=== PATIENT | female | born 1960 | race Caucasian/White ===

== ENCOUNTER 2023-08-01 16:17 | Emergency (ER) | payer OTHER, SELFPAY ==
--- NOTE | ~2023-08-01 | CT_ITS ---
EXAMINATION: CT abdomen pelvis w con DATE: 08/01/2023 19:19 INDICATION: Epigastric and left upper quadrant abdominal pain. Nausea. Diarrhea. TECHNIQUE: Computed tomography (CT) of the abdomen and pelvis was performed with 100 mL Omnipaque 350 intravenous contrast. Automated exposure control and iterative reconstruction technique were employe d. The dose-length product was 1287.10 mGy-cm. COMPARISON: None. FINDINGS: The visualized portions of the lung bases demonstrate mild atelectasis. No pleural effusion . The heart size is normal. No pericardial effusion. There is wall thickening of the distal esophagus , likely esophagitis. The liver, gallbladder, spleen, pancreas, adrenal glands, and kidneys are beth l. There are no dilated loops of bowel. The appendix is normal. There is calcified atherosclerosis of the aorta and many of the other arteries. There are no pathologically enlarged lymph nodes. There is no free intraperitoneal fluid. There is mild thoracic and lumbar spondylosis. IMPRESSION: 1. Wall thickening of the distal esophagus, likely esophagitis. Reviewed, dictated and finalized at location E. HALMOLOGIST
[2023-08-01 16:41] VITALS: BP 150/108; PULSE 71; RESP 16; TEMP 36.6; O2SAT 96
[2023-08-01 18:16] LABS: Basophils Absolute Auto 0.1 K/mm3 (0.0-0.1); Basophils Percent Auto 0.8 % (0.2-1.2); Eosinophils Absolute Auto 0.1 K/mm3 (0-0.3); Eosinophils Percent Auto 1.5 % (0-4.4); Hematocrit 43.3 % (37.0-47.0); Hemoglobin 14.1 g/dL (12.0-15.0); Immature Granulocyte Absolute 0.01 K/mm3 (0.00-0.031); Immature Granulocyte Percent A 0.1 % (0-0.5); Lymphocytes Percent Auto 41.1 % (18.3-44.2); Mean Corpuscular HGB Conc 32.6 g/dl (32-36); Mean Corpuscular Hemoglobin 29.4 pg (26-34); Mean Corpuscular Volume 90.4 fl (80-100); Monocytes Absolute Auto 0.8 K/mm3 (0.1-0.6); Monocytes Percent Auto 8.1 % (2.6-8.5); Neutrophils Absolute Auto 4.6 K/mm3 (1.3-6.7); Neutrophils Percent Auto 48.4 % (45.5-73.1); Platelet Count Result 227 k/mm3 (150-375); Red Blood Count 4.79 M/mm3 (4.2-5.4); Red Cell Distribution Width 13.3 % (11.5-14.5); White Blood Count 9.5 K/mm3 (4.5-10.0)
[2023-08-01 18:31] LABS: Alanine Aminotransferase 17 U/L (6-35); Albumin Level 4.3 g/dL (3.5-5.1); Alkaline Phosphatase 75 U/L (38-126); Anion Gap 8 mmol/L (8-16); Aspartate Amino Transferase 20 U/L (14-36); Bilirubin,Total 0.5 mg/dL (0.2-1.3); Blood Urea Nitrogen 17 mg/dL (7-17); Calcium 9.2 mg/dL (8.4-10.2); Carbon Dioxide 24 mmol/L (22-30); Chloride 105 mmol/L (98-107); Estimated CRCL calculation 73 ml/min; Estimated Glomerular Filt Rate > 60; Glucose 100 mg/dL (65-110); Lipase 318 U/L (23-300); Potassium 3.9 mmol/L (3.4-5.0); Sodium 137 mmol/L (137-145)
--- NOTE | 2023-08-01 18:59 | ECG_ITS ---
Measurements Intervals [place] Rate: 64 P: 21 AL: 152 QRS: 53 QRSD: 83 T: 47 QT: 431 QTc: 446 Interpretive Statements SINUS RHYTHM NO PREVIOUS ECG AVAILABLE FOR COMPARISON Electronically Signed On 08-03-2023 10:15:23 MANAGER PLAN by Jameson Stauffer M.D.
[2023-08-01 19:00] VITALS: BP 161/54; PULSE 70; RESP 18; TEMP 36.4; O2SAT 100
[2023-08-01] MEDS: ONDANSETRON INJ 4 MG/2 ML VIAL IV PUSH (19:05)
[2023-08-01] MEDS: PANTOPRAZOLE SODIUM IV 40 MG VIAL IV PUSH (19:05)
[2023-08-01 19:06] LABS: Appearance Urine Cloudy (Clear); Bacteria Urine 1+ /hpf; Bilirubin Urine Negative (Negative); Blood Urine Negative (Negative); Color Urine Yellow (Yellow); Glucose Urine UA Negative (Negative); Ketones Urine Trace mg/dL (Negative); Leukocyte Esterase Ur 2+ LEU/UL (Negative); Need Manual Microscopic Reviewed; Nitrate Urine Negative (Negative); Protein Urine Negative (Negative); RBC Urine 0-2 /hpf (0-2); Specific Grav Ur 1.027 (1.001-1.035); Squamous Epithelial Cell Urine Few /hpf (Few); Urobilinogen Urine 0.2 mg/dL (<2.0); WBC Urine 21-50 /hpf
[2023-08-01] MEDS: MORPHINE SULFATE (*CRX) 4 MG/ML INJ IV PUSH (19:08)
[2023-08-01] MEDS: SODIUM CHLORIDE 0.9% IV 1,000 ML 999 ML IV CONT (19:09)
[2023-08-01 19:14] LABS: Add Urine Microscopic? YES
[2023-08-01 19:31] LABS: Troponin I < 0.012 ng/mL (0.000-0.034)
--- NOTE | 2023-08-01 19:33 | ED.ABDPAIN ---
HPI - Abdominal Pain General Chief Complaint: Abdominal Pain Stated Complaint: ab pain Time Seen by Provider: 08/01/23 17:47 Source: patient and old records reviewed Mode of arrival: ambulatory Limitations: no limitations History of Present Illness HPI narrative: patient is a 63-year-old female who presents to the ED with report of left upper abdominal pain. Patient reports a history of pancreatic divisum with previous stenting, hx chronic pancreatitis. She sees Dr. Soto with GI at [facility]. She is scheduled to undergo ERCP in August. patient reports having increased pain in her left upper abdomen radiating around her back, over the last 1 week in addition to nausea, intermittent vomiting, diarrhea. She is concerned she has acute pancreatitis again. She has not been taking anything for the pain. She has been trying to stay NPO at home. She denies fevers, rectal bleeding, melena, dysuria, hematuria, Chest pain, shortness of breath. Related Data Allergies Allergy/AdvReac Type Severity Reaction Status Date / Time erythromycin base Allergy Hives Verified 08/01/23 19:05 Sulfa (Sulfonamide Allergy Nausea and Verified 08/01/23 19:04 Antibiotics) Vomiting Review of Systems Review of Systems: CONSTITUTIONAL: Denies fever, chills, or sweats. CARDIOVASCULAR: Denies chest pain. RESPIRATORY: Denies cough or dyspnea. GASTROINTESTINAL: See HPI. GENITOURINARY: Denies dysuria or hematuria. MUSCULOSKELETAL: See HPI. All systems reviewed & are unremarkable except as noted in HPI and below Exam Narrative: GENERAL: Well appearing, obese with BMI of 39.8, non-toxic, in no acute distress. HEAD: Normocephalic, atraumatic. NECK: Supple. No adenopathy, no masses. RESPIRATORY: Airway patent, respirations nonlabored. Clear to auscultation bilaterally, no rales, rhonchi, wheezing. CARDIOVASCULAR: Regular rate and rhythm without murmurs, rubs, or gallops. Radial pulses 2+ and equal bilaterally. ABDOMINAL: Soft, tenderness in epigastric region/LUQ, nondistended. Normoactive BS. MUSCULOSKELETAL: Moves all extremities. No gross deformities. SKIN: Warm, dry, normal color. No rashes. NEURO: A&O X3. Speech clear. Cranial nerves II-XII grossly intact. Steady gait. No ataxic movements. PSYCHIATRIC: Appropriate mood and affect. Normal interaction. Course Vital Signs Vital signs: Vital Signs Temperature 97.8 F 08/01/23 16:41 Pulse Rate 71 08/01/23 16:41 Respiratory Rate 16 08/01/23 16:41 Blood Pressure 150/108 H 08/01/23 16:41 Pulse Oximetry 96 08/01/23 16:41 Oxygen Delivery Room Air 08/01/23 16:41 Temperature 97.5 F L 08/01/23 19:00 Pulse Rate 68 08/01/23 21:56 Respiratory Rate 16 08/01/23 21:56 Blood Pressure 171/90 H 08/01/23 21:56 Pulse Oximetry 97 08/01/23 21:56 Oxygen Delivery Room Air 08/01/23 16:41 MDM - Abdominal Pain MDM Narrative Medical decision making narrative: Patient presents to ED with 1 week history of worsening epigastric/left upper quadrant pain, history of chronic pancreatitis with pancreatic divisum. Patient's vital stable upon arrival. Afebrile. In no acute distress. Will obtain labs and imaging in addition to pain and nausea control. Cbc without leukocytosis. Stable H& H. CMP unremarkable. Normal electrolytes. Lipase minimally elevated at 318. EKG without ischemic changes. Troponin negative. Low suspicion for acute ACS. Urine does appear infected with 2+ leuk esterase, 21-50 wbc's, 1+ urine bacteria. Sent for culture. Will treat. CT abdomen pelvis obtained and showing esophagitis, no comment on acute pancreatitis. Discussed these lab and imaging findings with patient. She is feeling much better with supportive therapy. She does not currently take anything for acid reflux. Will Rx protonix. Will also Rx zofran for nausea. Discussed management of gastritis/esophagitis/gerd, lifestyle changes. Advised close f/u with patient's GI specialist. Patient in agre
[2023-08-01] MEDS: BELLADONNA ALK/PHENOB ELIX 10 ML, MAG HYDROX/ALUMINUM HYD/SIMETH 30 ML, LIDOCAINE HCL 2... PO (19:57)
--- NOTE | 2023-08-01 20:51 | PC.NURSE ---
Patient called out to nursing station and stated that she was feeling nauous
--- NOTE | 2023-08-01 20:52 | PC.NURSE ---
Patient called out to nursing station and stated she was going to vomit. EDP VICKY Kumar notified.
[2023-08-01 21:00] VITALS: BP 141/47; PULSE 86; RESP 15; O2SAT 100
[2023-08-01] MEDS: METOCLOPRAMIDE HCL INJ 10 MG/2 ML VIAL IV PUSH (21:06)
[2023-08-01 21:56] VITALS: BP 171/90; PULSE 68; RESP 16; O2SAT 97
== END 2023-08-01 22:08 | disposition home or self-care (01) ==
PROVIDERS: Emergency Medicine; Emergency Provider Physician Assistant
DX: K20.90 Esophagitis, unspecified without bleeding (principal); N30.00 Acute cystitis without hematuria; Z96.89 Presence of other specified functional implants
CPT/HCPCS: 36415; 74177; 80053; 81001; 83690; 84484; 85025; 87077; 87086; 87186; 93005; 96361; 96365; 96375; 99284; A9270; C9113; J0696; J2270; J2405; J2765; J7030; Q9967

== ENCOUNTER 2023-09-05 15:33 | Emergency (ER) | payer OTHER, SELFPAY ==
--- NOTE | 2023-09-05 16:09 | ECG_ITS ---
Measurements Intervals [place] Rate: 76 P: 8 CO: 132 QRS: 39 QRSD: 78 T: 53 QT: 379 QTc: 427 Interpretive Statements SINUS RHYTHM NORMAL ECG COMPARED TO ECG 08/01/2023 19:55:23 NO SIGNIFICANT CHANGES Electronically Signed On 09-05-2023 16:18:13 FOURDRINIER MACHINE OPERATOR by Richie Centeno D.O.
[2023-09-05 16:14] VITALS: BP 140/109; PULSE 64; RESP 18; TEMP 36.6; O2SAT 98
[2023-09-05 16:37] LABS: Basophils Absolute Auto 0.1 K/mm3 (0.0-0.1); Basophils Percent Auto 0.5 % (0.2-1.2); Eosinophils Absolute Auto 0.1 K/mm3 (0-0.3); Eosinophils Percent Auto 0.8 % (0-4.4); Hematocrit 45.1 % (37.0-47.0); Hemoglobin 14.3 g/dL (12.0-15.0); Immature Granulocyte Absolute 0.02 K/mm3 (0.00-0.031); Immature Granulocyte Percent A 0.2 % (0-0.5); Immature Platelet Fraction Pct 6.7 % (0.9-11.2); Lymphocytes Absolute Auto 3.88 K/mm3 (0.9-3.2); Lymphocytes Percent Auto 34.6 % (18.3-44.2); Mean Corpuscular HGB Conc 31.7 g/dl (32-36); Mean Corpuscular Volume 91.5 fl (80-100); Mean Platelet Volume 11.2 fl (7.4-10.4); Monocytes Absolute Auto 0.8 K/mm3 (0.1-0.6); Monocytes Percent Auto 7.1 % (2.6-8.5); Neutrophils Absolute Auto 6.4 K/mm3 (1.3-6.7); Neutrophils Percent Auto 56.8 % (45.5-73.1); Platelet Count Result 197 k/mm3 (150-375); Red Blood Count 4.93 M/mm3 (4.2-5.4); Red Cell Distribution Width 13.1 % (11.5-14.5); White Blood Count 11.2 K/mm3 (4.5-10.0)
[2023-09-05 16:45] LABS: Alanine Aminotransferase 18 U/L (6-35); Albumin Level 3.8 g/dL (3.5-5.1); Alkaline Phosphatase 71 U/L (38-126); Anion Gap 9 mmol/L (8-16); Aspartate Amino Transferase 22 U/L (14-36); Bilirubin,Total 0.4 mg/dL (0.2-1.3); Blood Urea Nitrogen 15 mg/dL (7-17); Calcium 8.9 mg/dL (8.4-10.2); Carbon Dioxide 20 mmol/L (22-30); Chloride 108 mmol/L (98-107); Estimated CRCL calculation 84 ml/min; Estimated Glomerular Filt Rate > 60; Glucose 97 mg/dL (65-110); Lipase 1899 U/L (23-300); Sodium 137 mmol/L (137-145)
[2023-09-05 16:56] LABS: Platelet Estimate Adequate (Adequate); Schistocytes None Seen (NORMAL)
[2023-09-05 16:57] LABS: Hypochromasia 1+ (NORMAL)
--- NOTE | 2023-09-05 17:10 | ED.GENADULT ---
HPI - General Adult General Chief complaint: Abdominal Pain <YESI Costello Last Filed: 09/06/23 00:47> Stated complaint: ERCP procedure at [place] today, abd pain <YESI Costello Last Filed: 09/06/23 00:47> Time Seen by Provider: 09/05/23 17:02 <Silvestre Carranza PA-C - Last Filed: 09/06/23 00:47> Source: patient <YESI Costello Last Filed: 09/06/23 00:47> Mode of arrival: ambulatory <YESI Costello Last Filed: 09/06/23 00:47> Limitations: no limitations <YESI Costello Last Filed: 09/06/23 00:47> History of Present Illness HPI narrative: This is a 63-year-old female with PMH of pancreatic divisum, pancreatitis who presents to the ED with chief complaint of diffuse abdominal pain and nausea. She had ERCP at [place] today to replace pancreatic stent. Reports she went home around 10:30 a.m. and around 2:00 p.m. today she started having intense pain. She was unable to machine operator picker her prescription as the sent to her old pharmacy that [place] way. Reports a 10/10 pain, worse in the epigastrium. Denies fevers, chills, chest pain, shortness of breath, problems with bowel movements or urination. <YESI Costello Last Filed: 09/06/23 00:47> Related Data Allergies/adverse reactions: Allergies Allergy/AdvReac Type Severity Reaction Status Date / Time erythromycin base Allergy Hives Verified 08/01/23 19:05 Sulfa (Sulfonamide Allergy Nausea and Verified 08/01/23 19:04 Antibiotics) Vomiting <YESI Costello Last Filed: 09/06/23 00:47> Review of Systems Review of Systems: All systems as dictated in HPI <YESI Costello Last Filed: 09/06/23 00:47> Exam Narrative: GENERAL: Appears in pain. Does not appear toxic HEAD: Normocephalic, atraumatic. EYES: PERRLA and EOMI. ENT: Nares clear, no rhinorrhea or epistaxis. Mucous membranes moist. Oropharynx without tonsillar hypertrophy exudate or other lesions. NECK: Supple. No adenopathy or masses. CHEST: No respiratory distress. Clear to auscultation. No wheezes rales or rhonchi HEART: Regular rate and rhythm. No murmur heard. Normal peripheral pulses. ABDOMEN: Diffuse abdominal tenderness. soft, nondistended, normal active bowel sounds. Negative peritoneal signs. MSK: Normal range of motion. No edema. SKIN: Warm, dry, no rash. NEURO: Alert and oriented x3. No focal deficits. PSYCH: Normal mood and affect. <Silvestre Carranza PA-C - Last Filed: 09/06/23 00:47> Course Course Emergency Course: Spoke with patient's GI doctor, Dr. Soto. They will accept the patient for transfer. She will be pending bed placement. <Silvestre Carranza PA-C - Last Filed: 09/06/23 00:47> STAFF DEVELOPMENT COORDINATOR RN/PA Physician Supervision For this patient encounter, I reviewed the STAFF DEVELOPMENT COORDINATOR RN or PA documentation, treatment plan, and medical decision making and/or I had [id number] time with this patient. I performed all aspects of the MDM as documented. <Roas Maria Ch MD - Last Filed: 09/06/23 13:10> Vital Signs Vital signs: Vital Signs Temperature 97.9 F 09/05/23 16:14 Pulse Rate 64 09/05/23 16:14 Respiratory Rate 18 09/05/23 16:14 Blood Pressure 140/109 H 09/05/23 16:14 Pulse Oximetry 98 09/05/23 16:14 Oxygen Delivery Room Air 09/05/23 16:14 Temperature 97.9 F 09/05/23 16:14 Pulse Rate 81 09/05/23 22:13 Respiratory Rate 15 09/05/23 22:13 Blood Pressure 155/60 H 09/05/23 22:13 Pulse Oximetry 99 09/05/23 22:13 Oxygen Delivery Room Air 09/05/23 16:14 <Silvestre Carranza PA-C - Last Filed: 09/06/23 00:47> Vital Signs Temperature 97.9 F 09/05/23 16:14 Pulse Rate 64 09/05/23 16:14 Respiratory Rate 18 09/05/23 16:14 Blood Pressure 140/109 H 09/05/23 16:14 Pulse Oximetry 98 09/05/23 16:14 Oxygen Delivery Room Air 09/05/23 16:14 Temperature 97.9 F 09/05/23 16:14 Pulse Rate 81 09/05/23 22:13 Respiratory Rate 15 09/05/23 22:13
[2023-09-05] MEDS: SODIUM CHLORIDE 0.9% IV 1,000 ML 999 ML IV CONT (17:35)
[2023-09-05] MEDS: HYDROmorphone HCL INJ (*CRX) 1 MG/ML SYR IV PUSH (17:39)
[2023-09-05] MEDS: ONDANSETRON INJ 4 MG/2 ML VIAL IV PUSH (17:40)
[2023-09-05] MEDS: METOCLOPRAMIDE HCL INJ 10 MG/2 ML VIAL IV PUSH (19:36)
[2023-09-05 19:39] VITALS: BP 162/67; PULSE 69; RESP 15; O2SAT 96
[2023-09-05] MEDS: MORPHINE SULFATE (*CRX) 4 MG/ML INJ IV PUSH (20:20)
[2023-09-05] MEDS: LACTATED RINGERS 1,000 ML 500 ML IV CONT (20:20)
[2023-09-05 20:33] LABS: Appearance Urine Cloudy (Clear); Bacteria Urine 2+ /hpf; Bilirubin Urine Negative (Negative); Blood Urine Negative (Negative); Color Urine Yellow (Yellow); Glucose Urine UA Negative (Negative); Ketones Urine 1+ mg/dL (Negative); Leukocyte Esterase Ur Negative LEU/UL (Negative); Need Manual Microscopic Reviewed; Nitrate Urine Negative (Negative); Protein Urine Trace mg/dL (Negative); Specific Grav Ur 1.031 (1.001-1.035); Squamous Epithelial Cell Urine Many /hpf (Few); WBC Urine 21-50 /hpf; pH Urine 5.5 (5.0-9.0)
[2023-09-05 21:05] LABS: Add Urine Microscopic? YES
[2023-09-05 22:13] VITALS: BP 155/60; PULSE 81; RESP 15; O2SAT 99
[2023-09-06] MEDS: MORPHINE SULFATE (*CRX) 4 MG/ML INJ IV PUSH (00:26)
--- NOTE | 2023-09-06 00:30 | PC.NURSE ---
Patient left her room and approched nurses station and asked to leave. Patient states I can just go to [facility] in the morning and My daughter is on her way . Notified EDP VICKY Rivers who was okay with the AMA and still wanted the 4mg morphine IVP given.
== END 2023-09-06 00:33 | disposition left against medical advice (07) ==
LOC: ANHED 17:57
PROVIDERS: Emergency Medicine; Emergency Provider Physician Assistant
DX: K91.89 Other postprocedural complications and disorders of digestive system (principal); K85.90 Acute pancreatitis without necrosis or infection, unspecified
CPT/HCPCS: 36415; 80053; 81001; 83690; 85025; 85055; 87086; 87088; 93005; 96361; 96374; 96375; 99284; J1170; J2270; J2405; J2765; J7030; J7120